=== PATIENT | male | born 1950 | race Caucasian/White ===

== ENCOUNTER 2017-07-14 09:44 | Emergency (ER) | payer MEDICARE ==
[2017-07-14] MEDS ORDERED: LIDOCAINE 2% VISCOUS SOLN 20 ML UDCUP PO ONE (10:13)
[2017-07-14] MEDS ORDERED: METOCLOPRAMIDE HCL ORAL SOLN 10 MG/10 ML UDCUP PO ONE (10:13)
[2017-07-14] MEDS ORDERED: PREDNISONE 20 MG TABLET PO ONE (10:13)
[2017-07-14] MEDS ORDERED: MAG HYDROX/AL HYDROX/SIMETH SUSP 30 ML UDCUP PO ONE (10:13)
--- NOTE | 2017-07-14 11:13 | ER Document Report ---
ED General - General Chief Complaint: Sore Throat Stated Complaint: SORE THROAT Time Seen by Provider: 07/14/17 10:12 TRAVEL OUTSIDE OF THE [place] IN LAST 30 DAYS: No - HPI Patient complains to provider of: Sore throat Notes: Patient coming in for evaluation of sore throat. Patient states has recently returned from traveling the multiple lesions in [place] also currently is traveling around the [place] his [place] is in [facility] sore throat last night also states fevers and chills. Denies any sick contacts that the patient is aware of however does state that he has been on multiple plane trips last few days. Denies any chest pain abdominal pain nausea vomiting Patient does admit to recent antibiotics while he was in [place] due to traveler' s diarrhea unknown antibiotic - Related Data Allergies/Adverse Reactions: No Known Allergies Allergy (Unverified 07/14/17 09:55) Home Medications: Current Home Medications Ascorbic Acid [Vitamin C] 1,000 mg PO DAILY 07/14/17 [History] Aspirin [Aspirin 81 mg Chewable Tablet] 81 mg PO DAILY 07/14/17 [History] Atorvastatin Calcium 40 mg PO DAILY 07/14/17 [History] Benazepril HCl 10 mg PO DAILY 07/14/17 [History] Benazepril HCl [Lotensin] 20 mg PO DAILY 07/14/17 [History] Ergocalciferol (Vitamin D2) [Vitamin D] 1,000 unit PO DAILY 07/14/17 [History] Gluc Caba/Chondro Caba A/Vit C/Mn [Glucosamine 1,500 Complex Cap] 1 each PO DAILY [History] Hydrochlorothiazide [Hydrodiuril 50 mg Tablet] 50 mg PO QAM 07/14/17 [History] Metoprolol Tartrate 50 mg PO DAILY 07/14/17 [History] Slater-3/Dha/Epa/Fish Oil [Fish Oil 1,000 mg Softgel] 1 each PO DAILY 07/14/17 [ History] Omeprazole 40 mg PO DAILY 07/14/17 [History] Past Medical History - Social History Smoking Status: Never Smoker Frequency of alcohol use: Heavy Drug Abuse: None Family History: Reviewed & Not Pertinent - Past Medical History Cardiac Medical History: Reports: Hx Hypercholesterolemia, Hx Hypertension Renal/ Medical History: Denies: Hx Peritoneal Dialysis GI Medical History: Reports: Hx Gastroesophageal Reflux Disease Past Surgical History: Reports: Hx Cardiac Catheterization - stents, Hx Orthopedic Surgery - right shoulder, Hx Tonsillectomy Review of Systems - Review of Systems Constitutional: No symptoms reported EENT: Throat pain Cardiovascular: No symptoms reported Respiratory: No symptoms reported Gastrointestinal: No symptoms reported Genitourinary: No symptoms reported Male Genitourinary: No symptoms reported Musculoskeletal: No symptoms reported Skin: No symptoms reported Hematologic/Lymphatic: No symptoms reported Neurological/Psychological: No symptoms reported -: Yes All other systems reviewed and negative Physical Exam - Vital signs Vitals: Temp Pulse Resp BP Pulse Ox 98.6 F 93 18 127/57 H 98 07/14/17 09:57 07/14/17 09:57 07/14/17 09:57 07/14/17 09:57 07/14/17 09:57 Interpretation: Normal - General General appearance: Appears well, Alert - HEENT Head: Normocephalic, Atraumatic Eyes: Normal Pupils: PERRL Tympanic membrane: Normal Sinus: Normal Nasal: Normal Mucous membranes: Normal Pharynx: Erythema Neck: Normal - Respiratory Respiratory status: No respiratory distress Chest status: Nontender Breath sounds: Normal Chest palpation: Normal - Cardiovascular Rhythm: Regular Heart sounds: Normal auscultation Murmur: No - Abdominal Inspection: Normal Distension: No distension Bowel sounds: Normal Tenderness: Nontender Organomegaly: No organomegaly - Back Back: Normal, Nontender - Extremities General upper extremity: Normal inspection, Nontender, Normal color, Normal ROM , Normal temperature General lower extremity: Normal inspection, Nontender, Normal color, Normal ROM , Normal temperature, Normal weight bearing. No: Leandro's sign - Neurological Neuro grossly intact: Yes Cognition: Normal Orientation: AAOx4 Margaret Coma Scale Eye Opening: Spontaneous Margaret Coma Scale Verbal: Oriented Margaret Coma Scale Motor: Obeys Commands Margaret Coma Scale Total: 15 Speech: Normal Motor strength normal: LUE, RUE, LLE, RLE Sensory: Normal - Psychological Associated symptoms: Normal affect, Normal mood - Skin Skin Temperature: Warm Skin Moisture: Dry Skin Color: Normal Course - Re-evaluation Re-evalutation: 07/14/17 14:09 Patient coming in for evaluation of bilateral ear pain sore throat. Patient was negative for strep throat. We will treat the patient for his symptoms patient's pain better after viscous lidocaine will give the patient a prescription for Magic mouthwash also will get the patient short course of prednisone patient is to follow-up with primary care physician when she arrives back in [place]. No signs of significant pathology. More likely underlying viral cause of the patient's symptoms - Vital Signs Vital signs: Temp Pulse Resp BP Pulse Ox 101.9 F H 104 H 18 103/62 94 07/14/17 11:36 07/14/17 11:36 07/14/17 11:36 07/14/17 11:36 07/14/17 11:36 Discharge - Discharge Clinical Impression: Viral pharyngitis Condition: Good Disposition: HOME, SELF-CARE Instructions: Sore Throat ([facility]) Additional Instructions: Take medications as prescribed. Return to the ER symptoms worsen. Follow-up with your primary care physician. Prescriptions: Magic Mouth Wash 5 - 10 ml PO Q6 #120 Prednisone [Deltasone] 60 mg PO DAILY #24 tablet Forms: Return to Work
[2017-07-14 11:40] VITALS: BP 103/62
== END 2017-07-14 11:40 | disposition home or self-care (01) ==
LOC: ER 09:44
DX: J02.9 Acute pharyngitis, unspecified (principal); B34.9 Viral infection, unspecified; Z79.899 Other long term (current) drug therapy
CPT/HCPCS: 99283; 87070; 87880; J3490; A9270 ×2; J7512